=== PATIENT | male | born 1995 | race Hispanic/Latino ===

== ENCOUNTER 2022-08-13 13:14 | Emergency (ER) | payer SELFPAY ==
[~2022-08-13] VITALS: Ht 162.6 cm; Wt 100.8 kg
[2022-08-13] MEDS ORDERED: FAMOTIDINE 20 MG/2 ML VIAL IV ONE (14:00)
[2022-08-13] MEDS ORDERED: ONDANSETRON HCL INJ 2MG/ML 2ML 2 MG/ML VIAL IV ONE (14:00)
[2022-08-13] MEDS ORDERED: SODIUM CHLORIDE 0.9% 1000ML 1,000 ML IV SCH (14:00)
[2022-08-13] MEDS ORDERED: SODIUM CHLORIDE 0.9% 1000ML 1,000 ML ONE (14:15)
[2022-08-13] MEDS ORDERED: ONDANSETRON HCL INJ 2MG/ML 2ML 2 MG/ML VIAL ONE (14:16)
[2022-08-13] MEDS ORDERED: ONDANSETRON ODT4 MG PO (14:28)
[2022-08-13] MEDS ORDERED: LOPERAMIDE2 MG PO (14:31)
== END 2022-08-13 14:55 | disposition home or self-care (01) ==
LOC: FSED 13:27
DX: R11.2 Nausea with vomiting, unspecified (principal); A08.4 Viral intestinal infection, unspecified; R29.0 Tetany; J06.9 Acute upper respiratory infection, unspecified; R06.4 Hyperventilation; R05.9 Cough, unspecified
CPT/HCPCS: 80048; 80076; 81003; 85025; 87400; 96374; 96375; 99284; J2405; J7030